=== PATIENT | male | born 1955 | race Caucasian/White ===

== ENCOUNTER 2017-02-22 20:57 | Emergency (ER) | payer OTHER ==
[2017-02-23] MEDS ORDERED: OXYCODONE-ACETAMINOPHEN 5-325 MG TABLET PO ONE (00:10)
[2017-02-23] MEDS ORDERED: ONDANSETRON 4 MG TAB.RAPDIS PO ONE (00:10)
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
[2017-02-23 01:35] VITALS: BP 125/80
== END 2017-02-23 01:10 | disposition home or self-care (01) ==
LOC: ER 20:57
DX: M54.5 Low back pain (principal); M54.89 Other dorsalgia; V43.92XA Unspecified car occupant injured in collision with other type car in traffic accident, initial encounter; I10 Essential (primary) hypertension
CPT/HCPCS: 99283; S0119